=== PATIENT | female | born 1965 | race Caucasian/White ===

== ENCOUNTER → 2020-01-02 11:09 | Outpatient (CLI) | payer OTHER, SELFPAY ==
--- NOTE | ~2020-01-02 | DEXA_ITS ---
Bone Density Report Name: Madison Iglesias Age: 54 Sex: Female Ethnicity: White Date of : 1965 Indication: postmenopausal; screening for osteoporosis; Referring Provider: BRIGHT, JAMSHID Garcia Study: Bone densitometry was performed. Exam Date: January 02, 2020 Accession number: [id number] Bone Density: Region BMD T-score Z-score Classification AP Spine (L1-L4) 1.075 0.3 1.4 Normal Femoral Neck (Left) 0.727 -1.1 0.0 Osteopenia Total Hip (Left) 0.946 0.0 0.8 Normal Femoral Neck (Right) 0.782 -0.6 0.5 Normal Total Hip (Right) 0.963 0.2 0.9 Normal Total Hip Mean 0.955 0.1 0.9 Normal World Health Organization criteria for BMD impression classify patients as: Normal (T-score at or above -1.0), Osteopenia (T-score between -1.0 and -2.5), or Osteoporosis (T-score at or below -2.5). 10-year Fracture Risk(1): Major Osteoporotic Fracture 5.6% Hip Fracture 0.3% Reported Risk Factors: [place] (), Neck BMD=0.727, BMI=40.9 (1) FRAX(R) Version 3.08. Fracture probability calculated for an untreated patient. Fracture probability may be lower if the patient has received treatment. Clinical Information Provided by Patient: Has used the following medications: Vitamin D, Calcium Menopause Age: 49 No regular weight bearing exercise Drinks caffeinated beverages Onset of menses at age 10 Number of children 2 Impression: The patient has low bone mass, based on the Left Femoral Neck T-score. The patient has an estimated ten-year risk of hip fracture of 0.3% and an estimated ten-year risk of major fracture of 5.6%, based on the WHO FRAX algorithm. Discussion: BONE DENSITY IS LOW AT ONE OR MORE SKELETAL SITES. This patient's lowest T-score is low at one or more skeletal sites. It meets the World Health Organization's (WHO) criteria for ?low bone mass? (T-score between -1.0 and -2.5). The patient's 10-year risk of fracture as calculated by FRAX is less than the threshold where pharmacological therapy is recommended by the National Osteoporosis Foundation (NOF). However, all treatment decisions require clinical judgment and consideration of individual patient factors, including patient preferences, comorbidities, previous drug use, risk factors not captured in the FRAX model (e.g., frailty, falls, vitamin D deficiency, increased bone turnover, interval significant decline in bone density) and possible under or overestimation of fracture risk by FRAX. The patient should follow a healthful lifestyle (good nutrition with adequate calcium and vitamin D, and appropriate weight-bearing exercise). Follow-Up: Consider repeating this study in 2 to 3 years to reassess this patient's status, or sooner if there is some new clinical indication. Reported by: KAREN on 01/02/2020 11:45:00 AM.
--- NOTE | ~2020-01-02 | MM_ITS ---
EXAMINATION: MM screening [facility] BI w sheila HISTORY: Screening mammogram TECHNIQUE: Craniocaudal and mediolateral oblique 3-D tomosynthesis images were obtained and synthetic 2-D images were generated. CAD analysis was submitted and interpreted. COMPARISON: 09/09/2018, 07/10/2017, bilateral digital screening mammogram examinations BREAST PARENCHYMAL COMPOSITION: There are scattered areas of fibroglandular density. FINDINGS: There is no evidence of suspicious mass, calcification, or architectural distortion to sugg est malignancy in either breast. There has been no suspicious interval change. IMPRESSION: 1. No mammographic evidence of malignancy. 2. Recommend routine screening mammography in one year. BI-RADS Category 1: Negative Reviewed, dictated and finalized at location A.
== END ==
PROVIDERS: Visit Provider Internal Medicine
DX: Z13.820 Encounter for screening for osteoporosis (principal); Z12.31 Encounter for screening mammogram for malignant neoplasm of breast; Z78.0 Asymptomatic menopausal state; M85.852 Other specified disorders of bone density and structure, left thigh
CPT/HCPCS: 77063; 77067; 77080

== ENCOUNTER → 2021-01-06 16:55 | Outpatient (CLI) | payer OTHER, SELFPAY ==
--- NOTE | ~2021-01-06 | MM_ITS ---
EXAMINATION: MM screening [facility] BI w sheila HISTORY: Screening mammogram, family history of breast cancer in her mother. TECHNIQUE: Craniocaudal and mediolateral oblique 3-D tomosynthesis images were obtained and synthetic 2-D images were generated. CAD analysis was submitted and interpreted. COMPARISON: 01/02/2020, 09/09/2018, 07/10/2017 BREAST PARENCHYMAL COMPOSITION: There are scattered areas of fibroglandular density. FINDINGS: There is no evidence of suspicious mass, calcification, or architectural distortion to sugg est malignancy in either breast. There has been no suspicious interval change. IMPRESSION: 1. No mammographic evidence of malignancy. 2. Recommend routine screening mammography in one year. BI-RADS Category 1: Negative Reviewed, dictated and finalized at location A.
== END ==
PROVIDERS: PCP Internal Medicine; Visit Provider Internal Medicine
DX: Z12.31 Encounter for screening mammogram for malignant neoplasm of breast (principal)
CPT/HCPCS: 77063; 77067

== ENCOUNTER → 2022-03-30 15:40 | Outpatient (CLI) | payer OTHER, SELFPAY ==
--- NOTE | ~2022-03-30 | MM_ITS ---
EXAMINATION: MM screening [facility] BI w sheila HISTORY: Screening TECHNIQUE: Craniocaudal and mediolateral oblique 3-D tomosynthesis images were obtained and synthetic 2-D images were generated. CAD analysis was submitted and interpreted. COMPARISON: Comparison to multiple prior studies sequentially, with oldest reviewed study dated 04/13. BREAST PARENCHYMAL COMPOSITION: There are scattered areas of fibroglandular density. FINDINGS: There is a 3 mm developing mass in the upper outer quadrant of the left breast anteriorly. The right breast is stable without evidence for malignancy. IMPRESSION: 1. Developing 3 mm left breast mass, upper outer quadrant anteriorly. 2. Additional mammographic views and possible breast ultrasound are recommended. BI-RADS Category 0: Incomplete: Needs additional imaging evaluation. Reviewed, dictated and finalized at location A. 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 Developing 3 mm left breast mass, upper outer quadrant anteriorly. 2. Additional mammographic views and possible breast ultrasound are recommended . BI-RADS Category 0: Incomplete: Needs additional imaging evaluation.
--- NOTE | ~2022-03-30 | DEXA_ITS ---
Bone Density Report Name: FELIX RITCHIE Age: 56 Sex: Female Ethnicity: White Date of : 1965 Indication: postmenopausal; screening for osteoporosis; Referring Provider: BRIGHT, JAMSHID Garcia Study: Bone densitometry was performed. Exam Date: March 30, 2022 Accession number: [id number] Bone Density: Region BMD T-score Z-score Classification AP Spine (L1-L4) 1.112 0.6 1.9 Normal Femoral Neck (Left) 0.718 -1.2 0.1 Osteopenia Total Hip (Left) 0.939 0.0 0.9 Normal Femoral Neck (Right) 0.741 -1.0 0.3 Normal Total Hip (Right) 0.939 0.0 0.9 Normal Total Hip Mean 0.939 0.0 0.9 Normal World Health Organization criteria for BMD impression classify patients as: Normal (T-score at or above -1.0), Osteopenia (T-score between -1.0 and -2.5), or Osteoporosis (T-score at or below -2.5). 10-year Fracture Risk(1): Major Osteoporotic Fracture 6.5% Hip Fracture 0.4% Reported Risk Factors: [place] (), Neck BMD=0.718, BMI=37.0 (1) FRAX(R) Version 3.08. Fracture probability calculated for an untreated patient. Fracture probability may be lower if the patient has received treatment. Previous Exams: Region Exam Age BMD T-score BMD Change BMD Change Date g/cm2 vs Baseline vs Previous AP Spine(L1-L4) 03/30/2022 56 1.112 0.6 0.038* 0.038* 01/02/2020 54 1.075 0.3 Total Hip(Left) 03/30/2022 56 0.939 0.0 -0.007 -0.007 01/02/2020 54 0.946 0.0 Total Hip(Right) 03/30/2022 56 0.939 0.0 -0.024 -0.024 01/02/2020 54 0.963 0.2 *Denotes significance at 95% confidence level, LSC for AP Spine = 0.022 g/cm2, LSC for Total Hip = 0.027 g/cm2 Clinical Information Provided by Patient: Has used the following medications: Vitamin D, Calcium Patient maximum height was 66.5 Menopause Age: 49 No regular weight bearing exercise Does not regularly consume dairy products Drinks caffeinated beverages Onset of menses at age 10 Number of children 2 Impression: The patient has low bone mass, based on the Left Femoral Neck T-score. The patient has an estimated ten-year risk of hip fracture of 0.4% and an estimated ten-year risk of major fracture of 6.5%, based on the WHO FRAX algorithm. No significant bone loss was observed. Discussion: BONE DENSITY IS LOW AT ONE OR MORE SKELETAL SITES. This patient's lowest T-score is low at one or more skeletal sites. It meets the World Health Organiz
== END ==
PROVIDERS: PCP Internal Medicine; Visit Provider Internal Medicine
DX: Z12.31 Encounter for screening mammogram for malignant neoplasm of breast (principal); Z78.0 Asymptomatic menopausal state; M85.852 Other specified disorders of bone density and structure, left thigh; R92.8 Other abnormal and inconclusive findings on diagnostic imaging of breast
CPT/HCPCS: 77063; 77067; 77080

== ENCOUNTER → 2022-04-24 08:46 | Outpatient (CLI) | payer OTHER, SELFPAY ==
--- NOTE | ~2022-04-24 | MMUS_ITS ---
EXAMINATION: MM diagnostic [facility]iana LT w sheila, US breast LT limited HISTORY: Follow-up left breast mass TECHNIQUE: Additional 3-D tomosynthesis images of left were performed and synthetic 2-D images were g enerated. CAD analysis was submitted and interpreted. High resolution Limited left breast ultrasound was performed. COMPARISON: Comparison to multiple prior studies sequentially, with oldest reviewed study dated 10/2016. BREAST PARENCHYMAL COMPOSITION: BREAST PARENCHYMAL COMPOSITION: There are scattered areas of fibroglandular density. FINDINGS: MAMMOGRAPHIC FINDINGS: There is a small 3-4 mm mass in the upper outer quadrant of the left breast anteriorly near the nippl e. No suspicious calcifications or architectural distortions. ULTRASOUND: Limited left breast ultrasound: At 3:00 near the areola there is a subcutaneous oval hypoechoic mass measuring 5 x 2 x 4 mm without internal vascularity or posterior features, likely benign. At 1-2:00, 3 cm from the nipple there is an oval hypoechoic mass measuring 5 mm with parallel orientation, no po sterior features and no internal vascularity, likely benign. IMPRESSION: 1. Probable benign left breast masses. 2. Recommend 6 month follow-up diagnostic left mammogram and Limited ultrasound. BI-RADS category 3, probably benign findings. Reviewed, dictated and finalized at location B. TS SPECIALIST IMPRESSION: 1. Probable benign left breast masses. 2. Recommend 6 month follow-up diagnostic left mammogram and Limited ultrasound . BI-RADS category 3, probably benign findings.
== END ==
PROVIDERS: PCP Internal Medicine; Visit Provider Internal Medicine
DX: R92.8 Other abnormal and inconclusive findings on diagnostic imaging of breast (principal)
CPT/HCPCS: 76642; 77061; 77065; G0279

== ENCOUNTER → 2022-11-08 08:25 | Outpatient (CLI) | payer OTHER, SELFPAY ==
--- NOTE | ~2022-11-08 | MMUS_ITS ---
EXAMINATION: MM diagnostic mariana LT w sheila, US breast LT limited HISTORY: Six-month follow-up of probable benign left breast masses at 3:00 near areola and 1-2:00 3 c m from nipple TECHNIQUE: Full field and spot ML, MLO and CC 3-D tomosynthesis images of the left breast were perfor med and synthetic 2-D images were generated. CAD analysis was submitted and interpreted. High resolut ion targeted left 3:00 near the areola L1-2 o'clock 3 cm from nipple left breast ultrasound examinati on was performed. COMPARISON: 04/24/2022 diagnostic left mammogram and limited left breast ultrasound 03/30/2022 bilateral screening mammogram BREAST PARENCHYMAL COMPOSITION: There are scattered areas of fibroglandular density. FINDINGS: MAMMOGRAPHIC FINDINGS: Slightly increased size of a circumscribed low-density opacity situated anteriorly in the outer mid l eft breast, measuring approximately 3.4 x 3.6 x 5.5 mm, with halo sign. The circumscribed margins and halo sign are most suggestive of benign process, despite slight increase size from 3 x 3 x 4.7 mm si nce 03/30/2022. The lesion has a reniform appearance with possible radiolucent hilus, possibly a moses gn intramammary lymph node. No suspicious mass, architectural distortion, malignant calcification, skin thickening or retraction of the left breast is noted. Occasional benign calcifications. ULTRASOUND: 3:00 periareolar area: Parallel circumscribed hypoechoic 2 x 4.9 x 5 mm subcutaneous lesion, without internal vascularity or posterior shadowing. This is within the subcutaneous fat. 2.4 x 4.7 x 5.2 mm hypoechoic lesion is again evident at 1-2:00 3 cm from the nipple, not significant ly changed since 04/24/2022. No internal vascularity or posterior shadowing. IMPRESSION: 1. Stable benign findings since 04/24/2022; no evidence of malignancy 2. Routine annual mammographic screening is recommended. BI-RADS Category 2: Benign finding(s). Reviewed, dictated and finalized at location A. IMPRESSION: 1. Stable benign findings since 04/24/2022; no evidence of malignancy 2. Routine annual mammographic screening is recommended. BI-RADS Category 2: Benign finding(s).
== END ==
PROVIDERS: PCP Obstetrics & Gynecology; Visit Provider Internal Medicine
DX: R92.8 Other abnormal and inconclusive findings on diagnostic imaging of breast (principal)
CPT/HCPCS: 76642; 77061; 77065; G0279

== ENCOUNTER 2024-02-20 15:39 | Outpatient (CLI) | payer OTHER, SELFPAY ==
--- NOTE | ~2024-02-20 | MM_ITS ---
EXAMINATION: MM screening [facility] BI w sheila HISTORY: Screening TECHNIQUE: Craniocaudal and mediolateral oblique 3-D tomosynthesis images were obtained and synthetic 2-D images were generated. CAD analysis was submitted and interpreted. COMPARISON: Comparison to multiple prior studies sequentially, with oldest reviewed study dated 09/09. BREAST PARENCHYMAL COMPOSITION: . Not dense: There are scattered areas of fibroglandular density. FINDINGS: There is no evidence of suspicious mass, calcification, or architectural distortion to sugg est malignancy in either breast. There has been no suspicious interval change. IMPRESSION: 1. No mammographic evidence of malignancy. 2. Recommend routine screening mammography in one year. BI-RADS Category 1: Negative Reviewed, dictated and finalized at location B.
== END 2024-02-20 15:40 | disposition home or self-care (01) ==
LOC: MICIMG 15:40
PROVIDERS: PCP Internal Medicine; Visit Provider Internal Medicine
DX: Z12.31 Encounter for screening mammogram for malignant neoplasm of breast (principal)
CPT/HCPCS: 77063; 77067

== ENCOUNTER 2024-02-29 00:13 | Day surgery (SDC) | payer OTHER, SELFPAY ==
[2024-02-13 12:47] VITALS: BMI 37.6
[2024-02-29 06:55] VITALS: BP 156/87; PULSE 84; RESP 20; TEMP 35.7; O2SAT 99; BMI 38.1
--- NOTE | 2024-02-29 07:03 | WPDANESEPPF ---
Anes - Initial Pre Proc Eval Procedure: Operation Date: 02/29/24 08:00 Proposed Procedures p Screening Colonoscopy - Magdaleno Kwon MD Date/Time: 02/29/24 07:03 Surgeon: Magdaleno Kwon MD Pre Op Diagnosis: Neoplasm Screening Patient Data Age: 58 Gender: F Height: 1.7 m Weight: 110.4 kg Last Vital Signs Temp 35.7 C L 02/29/24 06:55 Pulse 84 02/29/24 06:55 Resp 20 02/29/24 06:55 BP 156/87 H 02/29/24 06:55 Pulse Ox 99 02/29/24 06:55 O2 Del Method Room Air 02/29/24 06:55 Allergies Allergy/AdvReac Type Severity Reaction Status Date / Time No Known Allergies Allergy Verified 02/29/24 06:53 Home Medications Medication Instructions Recorded Confirmed Type atorvastatin 20 mg tablet 20 mg PO DAILY 02/13/24 02/29/24 History calcium carb-ergocalciferol (vit 2 tablet PO DAILY 02/13/24 02/29/24 History D2) 600 mg calcium-200 unit tablet cholecalciferol (vitamin D3) 50 50 mcg PO DAILY 02/13/24 02/29/24 History mcg (2,000 unit) capsule (Vitamin D3) lisinopril 20 1 tablet PO DAILY 02/13/24 02/29/24 History mg-hydrochlorothiazide 12.5 mg tablet metformin 500 mg tablet,extended 500 mg PO DAILY 02/13/24 02/29/24 History release 24 hr multivitamin 1 tablet PO DAILY 02/13/24 02/29/24 History Patient hx anesthesia problems: none Family hx anesthesia problems: none Results Review: All pre-operative results and documents have been reviewed as part of the pre-operative evaluation. [facility] Past Medical History Medical History (Updated 02/29/24 @ 07:04 by Mark Shah MD) Diabetes HTN (hypertension) Hyperlipidemia Obesity Surgical History Surgical History (Updated 02/29/24 @ 07:07 by Mark Shah MD) H/O colonoscopy Social History Social History Living arrangements: with family Spiritual care concerns: No Anes - Eval Final PreProcedure Day of Procedure 02/29/24 07:03 Patient weight: obese Heart: regular rate and rhythm Lungs: clear to auscultation Airway: Mallampati scale class II Neurological: alert and oriented Last oral intake: >/= 8 hours ASA classification: III Emergent: no Anesthetic plan: proceed Anesthesia type and monitoring: general GIVS Results Review: All pre-operative results and documents have been reviewed as part of the pre-operative evaluation. Informed Consent: The patient's anesthetic plan and its attendant risks and benefits were discussed with the patient/family/POA. Questions were solicited and answers provided to the satisfaction of the patient/family/POA.
[2024-02-29] MEDS: LACTATED RINGERS 1,000 ML 150 ML IV CONT (07:06)
[2024-02-29 07:11] LABS: Glucose Point of Care 144 mg/dl (65-105)
--- NOTE | 2024-02-29 07:57 | PM.IMHP ---
H&P: HPI History of Present Illness Date/Time: 02/29/24 07:57 Chief Complaint: This is the patient's second screening colonoscopy after 10 years. There are no GI symptoms and there is no family history of colorectal cancer. Narrative: As above Review of Systems Review of Systems: All systems reviewed & are unremarkable except as noted in HPI and below PMFSH Past Medical History Medical History (Updated 02/29/24 @ 07:59 by Magdaleno Kwon MD) Diabetes HTN (hypertension) Hyperlipidemia Obesity Surgical History Surgical History (Updated 02/29/24 @ 07:07 by Mark Shah MD) H/O colonoscopy Social History Social History Living arrangements: with family Spiritual care concerns: No Meds Home Medications and Allergies Home Medications Medication Instructions Recorded Confirmed Type atorvastatin 20 mg tablet 20 mg PO DAILY 02/13/24 02/29/24 History calcium carb-ergocalciferol (vit 2 tablet PO DAILY 02/13/24 02/29/24 History D2) 600 mg calcium-200 unit tablet cholecalciferol (vitamin D3) 50 50 mcg PO DAILY 02/13/24 02/29/24 History mcg (2,000 unit) capsule (Vitamin D3) lisinopril 20 1 tablet PO DAILY 02/13/24 02/29/24 History mg-hydrochlorothiazide 12.5 mg tablet metformin 500 mg tablet,extended 500 mg PO DAILY 02/13/24 02/29/24 History release 24 hr multivitamin 1 tablet PO DAILY 02/13/24 02/29/24 History Allergies Allergy/AdvReac Type Severity Reaction Status Date / Time No Known Allergies Allergy Verified 02/29/24 06:53 Vital Signs Vital Signs - 24 hr 02/29/24 06:55 Temperature 96.3 F L Pulse Rate 84 Respiratory Rate 20 Blood Pressure 156/87 H Pulse Oximetry 99 Oxygen Delivery Room Air Assessment and Plan Assessment and plan (1) Screening for malignant neoplasm of colon: Code(s): Z12.11 - Encounter for screening for malignant neoplasm of colon Status: Acute Assessment and Plan: patient deemed a good candidate for colonoscopy. Will proceed.
[2024-02-29 08:30] VITALS: BP 130/77; PULSE 72; RESP 18; O2SAT 98
[2024-02-29 08:40] VITALS: BP 130/75; PULSE 67; RESP 20; O2SAT 96
[2024-02-29 08:50] VITALS: BP 141/70; PULSE 70; RESP 20; O2SAT 99
== END 2024-02-29 09:10 | disposition home or self-care (01) ==
PROVIDERS: PCP Internal Medicine; Visit Provider Internal Medicine Gastroenterology
PROC: 0DJD8ZZ Inspection of Lower Intestinal Tract, Via Natural or Artificial Opening Endoscopic (ICD-10-PCS; CPT 45378; principal; 2024-02-29 08:00)
DX: Z12.11 Encounter for screening for malignant neoplasm of colon (principal); D12.2 Benign neoplasm of ascending colon; K64.1 Second degree hemorrhoids; K57.30 Diverticulosis of large intestine without perforation or abscess without bleeding; E78.5 Hyperlipidemia, unspecified; I10 Essential (primary) hypertension; E11.9 Type 2 diabetes mellitus without complications; E66.9 Obesity, unspecified; Z68.38 Body mass index [BMI] 38.0-38.9, adult; Z79.84 Long term (current) use of oral hypoglycemic drugs
CPT/HCPCS: 45385; 82948; 88305; J2003; J2704; J7120

== ENCOUNTER 2025-03-11 14:11 | Outpatient (CLI) | payer OTHER, SELFPAY ==
--- NOTE | ~2025-03-11 | MM_ITS ---
EXAMINATION: MM screening mariana BI w sheila HISTORY: Screening TECHNIQUE: Craniocaudal and mediolateral oblique 3-D tomosynthesis images were obtained and synthetic 2-D images were generated. CAD analysis was submitted and interpreted. COMPARISON: Comparison to multiple prior studies sequentially, with oldest reviewed study dated 01/02/2020. BREAST PARENCHYMAL COMPOSITION: Not dense: There are scattered areas of fibroglandular density. FINDINGS: There is a developing mass in the upper outer quadrant of the left breast, anterior third. The right breast is stable without evidence for malignancy. IMPRESSION: 1. Developing left breast mass upper outer quadrant, anterior third. 2. Additional mammographic views and possible breast ultrasound are recommended. BI-RADS Category 0: Incomplete: Needs additional imaging evaluation. Reviewed, dictated and finalized at location B. IMPRESSION: 1. Developing left breast mass upper outer quadrant, anterior third. 2. Additional mammographic views and possible breast ultrasound are recommended . BI-RADS Category 0: Incomplete: Needs additional imaging evaluation.
--- NOTE | ~2025-03-11 | DEXA_ITS ---
Bone Density Report Name: FELIX RITCHIE Age: 59 Sex: Female Ethnicity: White Date of : 1965 Indication: postmenopausal; screening for osteoporosis; Referring Provider: BRIGHT, JAMSHID Garcia Study: Bone densitometry was performed. Exam Date: March 11, 2025 Accession number: [id number] Bone Density: Region BMD T-score Z-score Classification AP Spine(L1-L4) 1.122 0.7 2.2 Normal Femoral Neck (Left) 0.669 -1.6 -0.3 Osteopenia Total Hip (Left) 0.962 0.2 1.2 Normal Femoral Neck (Right) 0.702 -1.3 0.0 Osteopenia Total Hip (Right) 0.932 -0.1 1.0 Normal Femoral Neck Mean 0.686 -1.5 -0.1 Osteopenia Total Hip Mean 0.947 0.0 1.1 Normal World Health Organization criteria for BMD impression classify patients as: Normal (T-score at or above -1.0), Osteopenia (T-score between -1.0 and -2.5), or Osteoporosis (T-score at or below -2.5). 10-year Fracture Risk(1): Major Osteoporotic Fracture 8.1% Hip Fracture 0.8% Reported Risk Factors: [place] (), Neck BMD=0.669, BMI=35.7 (1) FRAX(R) Version 3.08. Fracture probability calculated for an untreated patient. Fracture probability may be lower if the patient has received treatment. Clinical Information Provided by Patient: Has used the following medications: Vitamin D, Calcium, multi Patient maximum height was 67.00 Menopause Age: 48 No regular weight bearing exercise Does not regularly consume dairy products Onset of menses at age 10 Number of children 2 Impression: The patient has low bone mass, based on the Left Femoral Neck T-score. Discussion: BONE DENSITY IS LOW AT ONE OR MORE SKELETAL SITES. This patient's lowest T-score is low at one or more skeletal sites. It meets the World Health Organization's (WHO) criteria for ?low bone mass? (T-score between -1.0 and -2.5). The patient's 10-year risk of fracture as calculated by FRAX is less than the threshold where pharmacological therapy is recommended by the National Osteoporosis Foundation (NOF). However, all treatment decisions require clinical judgment and consideration of individual patient factors, including patient preferences, comorbidities, previous drug use, risk factors not captured in the FRAX model (e.g., frailty, falls, vitamin D deficiency, increased bone turnover, interval significant decline in bone density) and possible under or overestimation of fracture risk by FRAX. The patient should follow a healthful lifestyle (good nutrition with adequate calcium and vitamin D, and appropriate weight-bearing exercise). Follow-Up: Consider repeating this study in 2 to 3 years to reassess this patient's status, or sooner if there is some new clinical indication. Reported by: ANDREW on 03/11/2025 3:15:00 PM. Reviewed, dictated and finalized at location A.
--- OUTSIDE RECORDS SUMMARY | 2025-03-11 16:01 | XMS_ITS | Clinical Summary ---
Author Organization [facility] Address [address] [place] [address] Care Team Providers Care Circulating Nurse Name Role Phone Unavailable Primary Care Provider Unavailabl e Source Comments [facility],non-owned Affiliates and Associated Physician Practices is amultiple site organization consisting of ambulatory clinics and hospital sitesin [place], [place], [place] and [place]. This disclosure is being madepursuant to the Care Everywhere program and may not contain all information available regarding this patient. Last updated 18.[facility] Allergies No known active allergies Medications * Be aware that medications may not be up to date on this document. Alwaysverify current medications with the patient. lisinopril-hydro chlorothiazide (PRINZIDE; ZESTORETIC) 10-12.5 MG tablet Take 1 Tab by mouth 2 times daily. Active metFORMIN (GLUCOPHAGE) 500 MG tablet Take 500 mg by mouth once daily. Active desogestrel-ethi nyl estradiol (EMOQUETTE) 0.15-30 MG-MCG tablet Take 1 Tab by mouth once daily. 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 Gender Identity Not on file Sexual Orientation Not on file Last Filed Vital Signs Vital Sign Reading Time Taken Comments Blood Pressure 118/78 11/05/2012 10:44 AM CDT Pulse - - Temperature - - Respiratory Rate - - Oxygen Saturation - - Inhaled Oxygen Concentration - - Weight 98.9 kg (218 lb) 11/05/2012 10:44 AM CDT Height 167.6 cm (5' 6) 08/12/2011 9:54 AM CDT Body Mass Index 35.19 08/12/2011 9:54 AM CDT Plan of Treatment Health Maintenance Due Date Last Done Comments COLOGUARD (AGES 45-75) - COLON CA SCREENING 1965 COLON MONITORING 1965 COLONOSCOPY - COLON CA SCREENING 1965 CT COLONOGRAPHY - COLON CA SCREENING 1965 Colorectal Cancer Screening 1965 FIT - COLON CA SCREENING 1965 FLEX SIG - COLON CA SCREENING 1965 LIPID TESTING 1965 HIV SCREENING 1978 HEPATITIS C SCREENING 04/11/1981 DTAP/TDAP/TD VACCINES (1 - Tdap) 1982 PNEUMOCOCCAL VACCINE 50+ (1 of 1 - PCV) 2013 ZOSTER VACCINE (1 of 2) 2013 MAMMOGRAM 10/17/2013 10/18/2011 PAP SMEAR 11/06/2015 11/05/2012, 07/14, 07/30/2010, Additional history exists DEPRESSION SCREENING 05/14/2024 COVID-19 VACCINE ( - season) 2025 INFLUENZA VACCINE (#1) 2025 Respiratory Syncytial Virus (RSV) Vaccine Pt: or over 60 yrs (1 - 1-dose 75+ series) 2038 HEPATITIS B VACCINE Aged Out No longe r eligible based on patient's age to complete this topic HIB VACCINE Aged Out No longer eligi ble based on patient's age to complete this topic HPV VACCINE Aged Out No longer eligi ble based on patient's age to complete this topic MENINGOCOCCAL (Group B) VACCINE SHARED DECISION-MAKING Aged Out No longer eligible based on patient's age to complete this topic MENINGOCOCCAL GROUPS A/C/Y/W VACCINE Aged Out No longer eligible based on patient's age to complete this topic Procedures Procedure Name Priority Date/Time Associated Diagnosis Comments PAP IG LB RFLX HPV HR ASCU RFLX 16,18 Routine 11/05/2012 10:58 AM CDT Routine Gynecological Examination MAMMO SCREENING BILATERAL Routine 10/18/2011 from Last 3 Months or Most Recently Relevant to Health Maintenance Results * PAP IG RFLX HPV ASCU RFLX 16/18 (PO REF LAB) (11/05/2012 10:58 AM CDT) Diagnosis [facility] INSURANCE BILL Comment:NEGATIVE FOR INTRAEP ITHELIAL LESION AND MALIGNANCY. Specimen Adequacy [facility] INSURANCE BILL Comment: Satisfactory for evaluation. Endocervical and/or squamous metaplastic cells (endocervical component) are present. Clinician Provided ICD9 [facility] INSURANCE BILL Comment:V72.31 ; Routine obgyn nurse ecological examination Performed by [facility] INSURANCE BILL Comment:[place] totechnologist (ASCP) Comment . [facility] INSURANCE BILL Note [facility] INSURANCE BILL Comment: The Pap smear is a screening test designed to aid in the detection of premalignant and malignant conditions of the uterine cervix. It is not a diagnostic procedure and should not be used as the sole means of detecting cervical cancer. Both false-positive and false-negative reports do occur. . [facility] CPT Code Automation [facility] INSURANCE BILL Comment: This liquid based ThinPrep(R) pap test was screened with the use of an image guided system. Note [facility] INSURANCE BILL Comment: The HPV DNA reflex criteria were not met with this specimen result therefore, no HPV testing was performed. . MICROSCOPIC CYTOLOGIC EXAMINATION OF SMEAR OF SPECIMEN FROM FEMALE GENITAL TRACT PREPARED USING PAPANICOLAOU TECHNIQUE / Unknown 11/05/2012 10:58 AM CDT 11/07/2012 12:43 AM CDT Narrative [facility] INSURANCE BILL - 11/08/2012 2:17 PM CDT No. of containers..01 CYTYC Thin Prep Vial Resulting Agency Comment [address] [place] [phone] us Yoav Hurst MD LAB - PATHOLOGY/CYTOLOGY ORD ERABLES Final Result [facility] INSURANCE BILL [address] [place] [address] * MAMMO SCREENING BILATERAL (10/18/2011) Anatomical Region Laterality Modality Breast Other us Yoav Hurst MD MAMMO ORDERABLES Final Resul t from Last 3 Months or Most Recently Relevant to Health Maintenance Insurance [employer] [facility] Address: [facility] [id number] [place] [address] SELF PAY NO INSURANCE Member Subscriber Plan / Payer (Ef fective for All Dates) Name:Felix Iglesias Member ID:Not on file Relation to Subscriber:Not on file Name:FELIX IGLESIAS Subscriber ID:Not on file (Home) Address: [address] [place] [address] Payer ID:Not on file Group ID:Not on file Type:Self Pay Address: [place], [place] [facility] Address: [facility] [id number] [place] [phone]
== END 2025-03-11 14:12 | disposition home or self-care (01) ==
LOC: CHSIMG 14:12
PROVIDERS: PCP Internal Medicine; Visit Provider Internal Medicine
DX: Z12.31 Encounter for screening mammogram for malignant neoplasm of breast (principal); Z78.0 Asymptomatic menopausal state; M85.89 Other specified disorders of bone density and structure, multiple sites; R92.8 Other abnormal and inconclusive findings on diagnostic imaging of breast
CPT/HCPCS: 77063; 77067; 77080

== ENCOUNTER 2025-04-08 09:01 | Outpatient (CLI) | payer OTHER, SELFPAY ==
--- NOTE | ~2025-04-08 | MMUS_ITS ---
EXAMINATION: MM diagnostic mariana LT w sheila, US breast LT limited HISTORY: Additional imaging TECHNIQUE: Craniocaudal and mediolateral oblique 3-D tomosynthesis images were obtained and synthetic 2-D images were generated. CAD analysis was submitted and interpreted. Grayscale sonography over the area(s) of interest with color Doppler if there is a finding. COMPARISON: March 11 BREAST PARENCHYMAL COMPOSITION: There are scattered areas of fibroglandular tissue. MAMMOGRAM FINDINGS: A circumscribed, ovoid mass containing a fatty cleft persists. This is consistent with a lymph node. It does appear slightly increased in size. There are no suspicious calcifications. No unexplained architectural distortion is seen. There are no skin or nipple abnormalities identified. There is no adenopathy seen on the images submitted. ULTRASOUND FINDINGS: Sonography through the 1:00 position in the anterior depth demonstrates a circumscribed, C-shaped, hypoechoic mass, which has an appearance consistent with a possible lymph node versus cyst. Lymph node is favored given the mammographic appearance. IMPRESSION: Probably benign findings short six-month follow-up left mammogram and left breast ultrasound are recommended. BI-RADS Code: 3 - Probably benign - short-term follow-up is recommended. Reviewed, dictated and finalized at location B. 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 BI-RADS Code: 3 - Probably benign - short-term follow-up is recommended.
== END 2025-04-08 09:02 | disposition home or self-care (01) ==
PROVIDERS: PCP Internal Medicine
DX: R92.8 Other abnormal and inconclusive findings on diagnostic imaging of breast (principal)
CPT/HCPCS: 76642; 77061; 77065; G0279